=== PATIENT | male | born 1945 | race Caucasian/White ===

== ENCOUNTER 2019-12-07 16:45 | Inpatient (IN) | payer MEDICARE, MEDICAID ==
[~2019-12-07] VITALS: Ht 175.3 cm; Wt 62.9 kg
[2019-12-07] MEDS ORDERED: ASPI-728 PO (16:57)
[2019-12-07] MEDS ORDERED: SODIUM CHLORIDE 0.9% 1,000 ML IV ONE ×2 (17:15→21:00)
[2019-12-07] MEDS ORDERED: ONDANSETRON HCL 4 MG/2 ML VIAL IVP ONE (17:15)
[2019-12-07 17:19] LABS: BASOPHILS % (AUTO) 0.3 % (0.0-2.0); EOSINOPHILS % (AUTO) 0.2 % (1.0-6.0); LYMPHOCYTES # (AUTO) 0.7 K/uL (1.0-4.8); MONOCYTES # (AUTO) 0.4 K/uL (0.1-1.0)
[2019-12-07 17:23] LABS: HEMATOCRIT 37.3 % (41-53); HEMOGLOBIN 12.8 g/dL (13.5-17.5); LYMPHOCYTES % (AUTO) 19.3 % (22.0-44.0); MEAN CORPUSCULAR HEMOGLOBIN 35.3 pg (26.0-34.0); MEAN CORPUSCULAR HGB CONC 34.4 G/dL (31.0-37.0); MEAN CORPUSCULAR VOLUME 103 fL (80-100); MONOCYTES % (AUTO) 10.5 % (2.0-9.0); NEUTROPHILS # (AUTO) 2.4 K/uL (1.8-7.7); NEUTROPHILS % (AUTO) 69.7 % (40.0-70.0); RED BLOOD CELL COUNT(AUTO) 3.63 MIL/uL (4.50-5.90); RED CELL DISTRIBUTION WIDTH 13.7 % (11.5-14.5)
[2019-12-07 18:00] LABS: ALANINE AMINOTRANSFERASE 85 U/L (12-78); ALBUMIN 2.7 g/dL (3.4-5.0); ALKALINE PHOSPHATASE 120 U/L (46-116); ANION GAP 17 mmol/L (8-16); ASPARTATE AMINOTRANSFERASE 145 U/L (15-37); BILIRUBIN,TOTAL 1.9 mg/dL (0.1-1.0); CALCIUM, TOTAL 7.8 mg/dL (8.8-10.5); CARBON DIOXIDE 23 mmol/L (22-29); CHLORIDE 95 mmol/L (98-107); CREATININE 0.84 mg/dL (0.60-1.30); GLUCOSE,RANDOM 95 mg/dL (70-110); SODIUM SERUM 135 mmol/L (136-145); UREA NITROGEN, BLOOD 8 mg/dL (7-18)
[2019-12-07 18:03] LABS: GLOMERULAR FILTR. RATE CALC > 60 mL/min (>60); POTASSIUM 2.9 mmol/L (3.5-5.1)
[2019-12-07 18:15] LABS: PLATELET COUNT (AUTO) 79 K/uL (150-450)
[2019-12-07] MEDS ORDERED: POTASSIUM CHL 20 MEQ/0.9% NS 1,000 ML IV ONE (18:15)
[2019-12-07 19:44] LABS: LIPASE 1157 U/L (73-393)
[2019-12-07] MEDS ORDERED: ONDANSETRON HCL 4 MG/2 ML VIAL IVP PRN ×2 (21:00→22:15)
[2019-12-07] MEDS ORDERED: ACETAMINOPHEN 325 MG TABLET PO PRN (21:00)
[2019-12-07] MEDS ORDERED: MAGNESIUM SULFATE 2 GM/WATER 50 ML IV PRN (22:15)
[2019-12-07] MEDS: SODIUM CHLORIDE 0.9% 1,000 ML IV SCH (22:15)
[2019-12-07] MEDS ORDERED: POTASSIUM CHL 10 MEQ/WATER 50 ML IV PRN (22:15)
[2019-12-07] MEDS ORDERED: MAGNESIUM SULFATE 4 GM/WATER 100 ML IV PRN (22:15)
[2019-12-07] MEDS ORDERED: MORPHINE SULFATE 2 MG/ML SYRINGE IVP PRN (22:15)
[2019-12-07] MEDS ORDERED: MAGNESIUM OXIDE 400 MG TABLET PO PRN (22:15)
[2019-12-07] MEDS ORDERED: 0.9% SODIUM CHLORIDE 10 ML SYRINGE IVP PRN (22:15)
[2019-12-07 23:10] VITALS: BP 106/53
[2019-12-08] MEDS: HEPARIN SODIUM,PORCINE 5,000 UNITS/ML VIAL SQ SCH ×3 (00:41→15:18)
[2019-12-08] MEDS: POTASSIUM CHLORIDE 20 MEQ ER TABLET PO PRN (01:23)
[2019-12-08 05:05] VITALS: BP 120/75
[2019-12-08 08:01] LABS: MAGNESIUM 1.1 mg/dL (1.80-2.40); POTASSIUM 3.8 mmol/L (3.5-5.1)
[2019-12-08] MEDS: PANTOPRAZOLE SODIUM 40 MG/VIAL IVP SCH (08:02)
[2019-12-08 08:41] VITALS: BP 132/74
[2019-12-08 11:27] VITALS: BP 140/75
[2019-12-08] MEDS: SODIUM CHLORIDE 0.9% 1,000 ML IV SCH (15:06)
[2019-12-08 15:35] VITALS: BP 117/57
[2019-12-08 20:00] VITALS: BP 120/57
[2019-12-09 00:15] VITALS: BP 129/72
[2019-12-09 04:55] VITALS: BP 121/57
[2019-12-09] MEDS: SODIUM CHLORIDE 0.9% 1,000 ML IV SCH (05:22)
[2019-12-09 07:17] LABS: BASOPHILS % (AUTO) 0.6 % (0.0-2.0); EOSINOPHILS % (AUTO) 1.1 % (1.0-6.0); HEMATOCRIT 34.2 % (41-53); HEMOGLOBIN 11.7 g/dL (13.5-17.5); LYMPHOCYTES % (AUTO) 40.8 % (22.0-44.0); MEAN CORPUSCULAR HEMOGLOBIN 35.3 pg (26.0-34.0); MEAN CORPUSCULAR HGB CONC 34.2 G/dL (31.0-37.0); MEAN CORPUSCULAR VOLUME 103 fL (80-100); MONOCYTES # (AUTO) 0.3 K/uL (0.1-1.0); MONOCYTES % (AUTO) 13.3 % (2.0-9.0); NEUTROPHILS # (AUTO) 1.1 K/uL (1.8-7.7); NEUTROPHILS % (AUTO) 44.2 % (40.0-70.0); PLATELET COUNT (AUTO) 77 K/uL (150-450); RED BLOOD CELL COUNT(AUTO) 3.31 MIL/uL (4.50-5.90); RED CELL DISTRIBUTION WIDTH 13.5 % (11.5-14.5)
[2019-12-09 07:38] LABS: ANION GAP 7 mmol/L (8-16); CALCIUM, TOTAL 7.8 mg/dL (8.8-10.5); CARBON DIOXIDE 28 mmol/L (22-29); CHLORIDE 97 mmol/L (98-107); CREATININE 0.57 mg/dL (0.60-1.30); GLUCOSE,RANDOM 98 mg/dL (70-110); LIPASE 704 U/L (73-393); SODIUM SERUM 132 mmol/L (136-145); UREA NITROGEN, BLOOD 3 mg/dL (7-18)
[2019-12-09 07:44] LABS: GLOMERULAR FILTR. RATE CALC > 60 mL/min (>60); POTASSIUM 2.7 mmol/L (3.5-5.1)
[2019-12-09 07:54] VITALS: BP 124/68
[2019-12-09] MEDS ORDERED: SODIUM CHLORIDE 0.9% 500 ML IV ONE (08:32)
[2019-12-09] MEDS: HEPARIN SODIUM,PORCINE 5,000 UNITS/ML VIAL SQ SCH ×2 (08:35)
[2019-12-09] MEDS: PANTOPRAZOLE SODIUM 40 MG/VIAL IVP SCH (08:35)
[2019-12-09] MEDS: POTASSIUM CHLORIDE 20 MEQ ER TABLET PO PRN (08:56)
== END 2019-12-09 09:40 | disposition left against medical advice (07) | DRG 440 ==
LOC: EMS 16:46 → 4E 20:30
PROVIDERS: ADMIT Internal Medicine; ATTEND Internal Medicine
DX: K85.90 Acute pancreatitis without necrosis or infection, unspecified (principal); J44.9 Chronic obstructive pulmonary disease, unspecified; I10 Essential (primary) hypertension; E87.6 Hypokalemia; F10.10 Alcohol abuse, uncomplicated; Y90.9 Presence of alcohol in blood, level not specified; Z53.29 Procedure and treatment not carried out because of patient's decision for other reasons
CPT/HCPCS: 74176; 76705; 83735; 84132; 93005; C9113; G0378; J1644; J2405; J3475; J3480; J7030; J7040